=== PATIENT | female | born 1965 ===

== ENCOUNTER 2025-07-25 10:22 | Outpatient (AMB) | payer BC, SELFPAY | END 2025-07-25 10:30 | disposition home or self-care (01) | LOC: HO.HMGAL 10:22 | PROVIDERS: PCP Internal Medicine; Visit Provider Registered Nurse Emergency | DX: J30.89 Other allergic rhinitis (principal) | CPT/HCPCS: 95117; 95165 ==

== ENCOUNTER 2025-09-14 10:48 | Outpatient (AMB) | payer BC, SELFPAY | END 2025-09-14 10:49 | disposition home or self-care (01) | LOC: HO.HMGAL 10:48 | PROVIDERS: PCP Internal Medicine; Visit Provider Registered Nurse Emergency | DX: J30.89 Other allergic rhinitis (principal) | CPT/HCPCS: 95117; 95165 ==